=== PATIENT | male | born 1955 | race Caucasian/White ===

== ENCOUNTER → 2019-10-13 11:26 | Outpatient (BNVA) | payer BC, SELFPAY | PROVIDERS: Family Provider Nurse Practitioner; PCP Nurse Practitioner; Visit Provider Nurse Practitioner Family | DX: I10 Essential (primary) hypertension (principal); Z12.5 Encounter for screening for malignant neoplasm of prostate; D64.9 Anemia, unspecified; Z12.11 Encounter for screening for malignant neoplasm of colon | CPT/HCPCS: 80053; 80061; 82607; 82728; 82746; 83550; 84443; 85025; G0103 ==

== ENCOUNTER → 2019-10-25 13:15 | Outpatient (BNVA) | payer MEDICARE, OTHER, SELFPAY | PROVIDERS: Family Provider Nurse Practitioner; PCP Nurse Practitioner; Visit Provider Nurse Practitioner Family | DX: D64.9 Anemia, unspecified (principal); E87.1 Hypo-osmolality and hyponatremia | CPT/HCPCS: 80048; 85025 ==

== ENCOUNTER 2019-11-10 08:22 | Day surgery (SDC) | payer MEDICARE, OTHER, SELFPAY ==
[2019-11-09 10:28] VITALS: BMI 29.9
[2019-11-10 08:40] VITALS: BP 173/72; PULSE 62; RESP 18; TEMP 36.2; O2SAT 100
--- NOTE | 2019-11-10 08:48 | ANES.PREANE2 ---
Pre-Anesthetic Assessment Pre-Anesthetic Assessment: Height/Weight: Height 1.91 m Weight 108.862 kg Preop Diagnosis: Unintentional weight loss Proposed Procedure: Operation Date: 11/10/19 09:30 Proposed Procedures p EGD(Not Applicable) - Grayson Stewart MD s Colonoscopy 67021 Z12.11 38552/R63.4(Not Applicable) - Grayson Stewart MD Social: Social History: Tobacco (quit 2003) and No alcohol Exam: Pre-Anes Outpt Exam: alert, oriented x 3, clear to auscultation bilaterally and regular rate & rhythm Airway: Submandibular: WNL Cervical ROM: WNL MP: 2 Dentition: Other (poor dentation) History/ROS: No significant history except as noted Pulmonary: Pulmonary: None reported CV/HEM: CV/HEM: HTN : : None reported Hepatic: Hepatic: None reported GI: GI: None reported Metabolic: Metabolic: Hyperlipidemia Musc/skel: Musc/skel: None reported Neuropsych: Neuropsych: None reported Anesthetic Plan: ASA status: 3 Anesthesia: Anesthesia Evaluation and MAC Risk of > 500 ml blood loss (7ml/kg in children): No PFSH Anesthesia PFSH: Medical History Abnormal loss of weight Hyperlipidemia Hypertension Family History Sister Cancer Hypertension Social History Smoking and tobacco status: former smoker Alcohol intake: current Alcohol intake frequency: 0-2 Drinks per Day Alcohol type: beer Data Anesthesia Cardiac Studies: No Data to Display
[2019-11-10] MEDS: sodium chloride 0.9% 1,000 ML 30 ML IV (09:18)
--- NOTE | 2019-11-10 09:42 | W.PM.OPSUD ---
Surgery/Procedure H&P Update DATE OF PROCEDURE: November 10, 2019 DATE H&P PERFORMED: 10/27/19 H&P UPDATE INFORMATION: I have reviewed H&P completed within last 30 days, I have examined patient prior to procedure and Changes to prior documentation as noted here (As I evaluated more the patient's condition and because of the weight loss I elected to add a diagnostic EGD to rule out potential underlying cause for his weight loss and patient agreed to proceed accordingly) PREOP DIAGNOSIS: Unintentional weight loss PLANNED PROCEDURE: Operation Date: 11/10/19 09:30 Proposed Procedures p EGD(Not Applicable) - Grayson Stewart MD s Colonoscopy 63081 Z12.11 15796/R63.4(Not Applicable) - Grayson Stewart MD
--- NOTE | 2019-11-10 10:12 | SUR.OPER ---
5ml ink placed at rectal sigmoid colonic mass bx site
[2019-11-10 10:15] VITALS: BP 96/61; PULSE 61; RESP 16; TEMP 36.8; O2SAT 96
--- NOTE | 2019-11-10 10:19 | ANE.PACU2 ---
Inpatient post-anesthesia follow up: Airway intact: Yes Vital signs: Temperature 97.2 F Pulse Rate 62 Respiratory Rate 18 Blood Pressure 173/72 Pulse Oximetry 100 Oxygen Delivery Me thod Room Air Oxygen Flow Rate Fraction of Inspir ed Oxygen Hydration adequate: Yes Nausea and vomiting: No Pain level: 1 Mental status: Baseline
[2019-11-10 10:35] VITALS: BP 143/70; PULSE 57; RESP 18; O2SAT 100
[2019-11-10 12:16] LABS: Carcinoembryonic Antigen 2.4 ng/mL (0.0-4.7)
[2019-11-11 09:01] LABS: H. Pylori / CLO Test Positive
== END 2019-11-10 11:00 | disposition home or self-care (01) ==
PROVIDERS: PCP Nurse Practitioner Family; Visit Provider Surgery
PROC: 0DJ08ZZ Inspection of Upper Intestinal Tract, Via Natural or Artificial Opening Endoscopic (ICD-10-PCS; CPT 43235; principal; 2019-11-10 09:30)
PROC: 0DJD8ZZ Inspection of Lower Intestinal Tract, Via Natural or Artificial Opening Endoscopic (ICD-10-PCS; CPT 45378; 2019-11-10 09:30)
DX: Z12.11 Encounter for screening for malignant neoplasm of colon (principal); C18.7 Malignant neoplasm of sigmoid colon; R63.4 Abnormal weight loss; Z68.30 Body mass index [BMI] 30.0-30.9, adult; K92.1 Melena; K44.9 Diaphragmatic hernia without obstruction or gangrene; K29.70 Gastritis, unspecified, without bleeding; K26.9 Duodenal ulcer, unspecified as acute or chronic, without hemorrhage or perforation; Z87.891 Personal history of nicotine dependence; I10 Essential (primary) hypertension; E78.5 Hyperlipidemia, unspecified; Z79.82 Long term (current) use of aspirin
CPT/HCPCS: 12345; 43239; 45380; 82378; 87077; 88305; J7030

== ENCOUNTER 2019-11-15 12:58 | Outpatient (CLI) | payer MEDICARE, OTHER, SELFPAY ==
[2019-11-15] MEDS: iohexol 300 mg/mL 50 mL Btl PO (14:24)
[2019-11-15] MEDS: iodixanol 320 mg/mL 100mL Btl IV (14:24)
--- NOTE | 2019-11-15 14:30 | CT_ITS ---
WS: [id number] CT ABDOMEN PELVIS TECHNIQUE: Contrast-enhanced CT of the abdomen and pelvis with coronal and sagittal reformatted image s. CLINICAL INFORMATION: colonic mass COMPARISON: None. DLP: 1118.[address] scans at [facility] use at least one of these dose optimization techniques: automat ed exposure control; mA and/or kV adjustment per patient size (includes targeted exams where dose is matched to clinical indication); or iterative reconstruction. FINDINGS: Diffuse heterogeneous liver enhancement with mild diffuse fatty infiltration. A few incidental hepati c cysts near the maricruz hepatis. Diffuse coarse heterogeneous enhancement is nonspecific and metastati c disease not entirely excluded. This can be further evaluated with MRI or ultrasound. Splenic granulomas. Normal GE junction. Lung bases are well aerated. Pancreas is normal in appearance . Gallbladder is contracted with a small gallstone. Adrenal glands are normal. Normal renal parenchym al enhancement. Small left renal cysts. No hydronephrosis. Aortic calcification. Heterogeneous enhancing sigmoid colon mass consistent with known colonic mass 5.4 x 3.8 cm. Prostate calcification. Incidental fat-containing umbilical hernia. Diverticulosis. CT/CT abdomen pelvis w con* [id number] IMPRESSION: 1. Coarse heterogeneous enhancement diffusely throughout the liver nonspecific may be due to parenchymal disease however metastatic disease not entirely excl uded. This can be further evaluated with MRI or ultrasound. Recommend correlati on with liver function tests. 2. A few incidental hepatic cysts near the maricruz hepatis. Minimal proximal int rahepatic ductal dilatation 3. Gallbladder is contracted with a small gallstone. 4. Heterogeneously enhancing 5.4 x 3.8 cm sigmoid colon mass consistent with k nown carcinoma. No abdominal or inguinal lymphadenopathy. 5. Incidental left renal cysts.
== END 2019-11-15 12:59 | disposition home or self-care (01) ==
LOC: RADWPI 13:04
PROVIDERS: Family Provider Nurse Practitioner Family; PCP Nurse Practitioner Family; Visit Provider Surgery
DX: K63.89 Other specified diseases of intestine (principal); Q61.02 Congenital multiple renal cysts; K80.80 Other cholelithiasis without obstruction
CPT/HCPCS: 74177; Q9967

== ENCOUNTER 2019-11-18 13:13 | Outpatient (CLI) | payer MEDICARE, OTHER, SELFPAY ==
--- NOTE | 2019-11-18 14:51 | ONC CON_ITS ---
Dr. Winkler New Patient Note Patient: Bienvenido Preston Unit #: [id number]: 1955 Dicatated By: Mckinley Winkler M.D.Date of Visit: Nov 18, 2019 Onc MED New Patient/Consult Referring Physician: Dr. HELLEN JEFFERSON M.D. History of Present Illness: Mr. Bienvenido Preston, is a 63-year-old gentleman with a history of off and on rectal bleed and constipation as per patient he lost about 50 pounds over the period of 1 year and it was unintentional, had a good appetite. Denies any abdominal pain denies any jaundice. Denies any dysphagia, denies any abdominal fullness. And he was also found to have anemia which is responding well to oral iron and his hemoglobin checked on November 15, 2019 was 11.6 hematocrit 35.7 MCV 81, white blood count 5.9 hemoglobin 247,000. Patient was referred to GI for evaluation underwent colonoscopy for iron deficiency anemia on November 10, 2019 which showed in the proximal sigmoid colon, partially obstructing large sized fungating, friable malignant appearing 5 cm x 10 cm mass there was stigmata of bleeding from the mass. Biopsy was obtained which confirmed moderately differentiated invasive adenocarcinoma patient underwent CT scan of abdomen pelvis on November 15, 2019 which showed coarse heterogeneous enhancement diffusely throughout the liver nonspecific may be due to parenchymal disease however metastatic disease not entirely excluded heterogeneously enhancing 5.4 x 3.8 cm sigmoid colon mass. No abdominal or inguinal lymphadenopathy seen. Past Medical History: Mr. Preston's medical history consists of anemia, hyperlipidemia, and hypertension. Past Surgical History: Mr. Preston's surgical/procedural history consists of colonoscopy. Medications: Amoxicillin 2 Capsule (of 500 mg) Oral b.i.d., Aspirin Adult 1 Tablet (of 325 mg) Oral daily, Clarithromycin 1 Tablet (of 500 mg) Oral daily, Ferrous Sulfate 1 Tablet (of 325 (65 fe) mg) Oral t.i.d., Lisinopril 1 Tablet (of 10 mg) Oral daily, Metoprolol Tartrate 1 Tablet (of 50 mg) Oral b.i.d., Pantoprazole Sodium 1 Tablet (of 40 mg) Tablet, enteric coated Oral daily, Potassium Chloride Monica ER 1 Tablet (of 10 meq) Tablet, controlled release Oral daily, Spironolactone 1 Tablet (of 25 mg) Oral daily, Sucralfate 1 Tablet (of 1 g) Oral t.i.d. Allergies: hydroCHLOROthiazide Social History: Mr. Preston is single and he is an unknown. Mr. Preston quit smoking 30 years ago but had smoked 1.0 pack/day for 30 years. He is an active drinker.He consumes 2 drinks/day 4 days/week. Family History: Mr. Preston's mother is : myocardial infarction. Mr. Preston's father is : old age. Mr. Preston has 1 brother who is : prostate cancer. He has 1 sister who is : breast cancer. pt states he has 3 sisters and 1 brother, unsure of 2 sister that have past away. Review Of Symptoms: Constitutional - Appetite is good and weight has decreased. No fever, night sweats, or hot flashes. nergy level is fair, ENMT - No sinus congestion/drainage. No mouth sores. No sore throat or difficulty swallowing, Hematologic/Lymphatic - Positive for easy bruising, Respiratory - No shortness of breath. No cough. No pleuritic pain or hemoptysis, Cardiovascular - No angina pain. No palpitations, Gastrointestinal - No nausea or vomiting. No heartburn or acid reflux. No diarrhea. Positive for constipation. Positive for bloody stool (Pt has hemorrhoids), Genitourinary (M) - No dysuria or hematuria. No urinary frequency. No urgency or incontinence, Musculoskeletal - No joint or bone pain, Neurologic - No headache or dizziness. No numbness or tingling. No other focal neurologic symptoms, Psychiatric - No anxiety or depression. No insomnia. Vital Signs: Performed on Nov 18, 2019 14:12: 0, 27.25, 2.28 sq.m, 75.00 in, 100 %, 54 /min (LOW), 20 /min, 151/70 mm(hg) (HIGH), 97.7 F (LOW), and 218.0 lbs (HIGH). Performance Status: 0 - Fully active, able to carry on all predisease activities without restrictions. (ECOG) Physical Examination: ENMT - No mouth sores, no thrush no jaundice, Respiratory - Lungs are clear, Cardiovascular - Regular rate and rhythm of heart, Abdomen - Soft, bowel sounds present, no tenderness, Extremities - No visible edema or rash. Lab/Imaging: Most recent lab results are not available for this patient. Impression: Sigmoid colon adenocarcinoma per colonoscopy done on November 10, 2019 CT scan of abdomen pelvis done on November 15, 2019 shows diffuse heterogeneous liver enhancement, nonspecific but metastatic disease cannot be excluded. Iron deficiency anemia on oral iron Plan: Discussed with patient regarding his disease status and CT scan of abdomen findings which showed diffuse coarse heterogeneous enhancement although nonspecific but as per radiology metastatic disease cannot be excluded. also concerned about unintentional weight loss, at this point, will concern a CT PET scan for staging purposes and also obtain preop CEA level. Patient will return to clinic after CT PET scan for further discussion and planning. Signed By: Mckinley Winkler M.D. <<Signature on File>>
[2019-11-18 15:24] LABS: Carcinoembryonic Antigen 2.4 ng/mL (0.0-4.7)
== END 2019-11-18 13:14 | disposition home or self-care (01) ==
LOC: ONCMED 13:21
PROVIDERS: PCP Nurse Practitioner Family; Referring Provider Surgery; Visit Provider Internal Medicine Hematology & Oncology
DX: C18.7 Malignant neoplasm of sigmoid colon (principal); D50.9 Iron deficiency anemia, unspecified; R93.2 Abnormal findings on diagnostic imaging of liver and biliary tract
CPT/HCPCS: 80048; 82378; 85025; 99203

== ENCOUNTER 2019-12-07 07:13 | Inpatient (IN) | payer MEDICARE, OTHER, SELFPAY ==
[2019-12-06 09:28] VITALS: BMI 27.2
--- NOTE | 2019-12-06 09:49 | ECG_ITS ---
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 Measurements Intervals Evans Rate: 54 P: 82 DE: 228 QRS: 41 QRSD: 97 T: 53 QT: 417 QTc: 398 Interpretive Statements SINUS BRADYCARDIA WITH FIRST DEGREE AV BLOCK No previous ECG available for comparison Electronically Signed On 12-06-2019 16:43:16 CDT by Walter Gonzales M.D. [id number]
[2019-12-07] VITALS (16 sets, daily range): BP systolic 106–178; BP diastolic 53–71; PULSE 62–77; RESP 12–18; TEMP 35.9–36.8; O2SAT 92–100
--- NOTE | 2019-12-07 07:34 | ANES.PREANE2 ---
Pre-Anesthetic Assessment Pre-Anesthetic Assessment: Height/Weight: Height 1.91 m Weight 98.883 kg Preop Diagnosis: Unintentional weight loss Proposed Procedure: Operation Date: 12/07/19 08:45 Proposed Procedures p Laparoscopic Sigmoidectomy/possible open 08038 91243 C18.9(Not Applicable) - Grayson Stewart MD s Colostomy/ Flex Sigmoidoscopy Possible(Not Applicable) - Grayson Stewart MD Was Beta Nicolás taken within 24 hours: Yes Social: Social History: Alcohol and No tobacco Exam: Pre-Anes Outpt Exam: alert, oriented x 3, clear to auscultation bilaterally and regular rate & rhythm Airway: Submandibular: WNL Cervical ROM: WNL MP: 1 Dentition: Full History/ROS: No significant complaints Pulmonary: Pulmonary: None reported CV/HEM: CV/HEM: HTN : : None reported Hepatic: Hepatic: None reported GI: GI: None reported Metabolic: Metabolic: None reported Musc/skel: Musc/skel: None reported Neuropsych: Neuropsych: None reported Anesthetic Plan: ASA status: 3 Anesthesia: General Risk of > 500 ml blood loss (7ml/kg in children): Yes, adequate IV access and fluids planned PFSH Anesthesia PFSH: Medical History Abnormal loss of weight Hyperlipidemia Hypertension Family History Sister Cancer Hypertension Social History Smoking and tobacco status: former smoker Alcohol intake: current Alcohol intake frequency: 0-2 Drinks per Day Alcohol type: beer Data Anesthesia Cardiac Studies: No Data to Display
[2019-12-07] MEDS: sodium chloride 0.9% 1,000 ML 30 ML IV (07:47)
--- NOTE | 2019-12-07 08:27 | W.PM.OPSUD ---
Surgery/Procedure H&P Update DATE OF PROCEDURE: December 07, 2019 DATE H&P PERFORMED: 11/17/19 H&P UPDATE INFORMATION: I have reviewed H&P completed within last 30 days, I have examined patient prior to procedure and No changes to prior documentation PREOP DIAGNOSIS: Unintentional weight loss PRIMARY INDICATION FOR PROCEDURE: The same PLANNED PROCEDURE: Operation Date: 12/07/19 08:45 Proposed Procedures p Laparoscopic Sigmoidectomy/possible open 74607 55778 C18.9(Not Applicable) - Grayson Stewart MD s Colostomy/ Flex Sigmoidoscopy Possible(Not Applicable) - Grayson Stewart MD
[2019-12-07] MEDS: heparin 5,000 unit/mL INJ 1 mL 3000 UNIT SUBCUT (08:50)
[2019-12-07] MEDS: piperacillin-tazobactam 3.375 GM in sodium chloride 0.9% (plus) 50 ML IV ×2 (09:13→16:42)
[2019-12-07] MEDS: sodium chloride 0.9% 50 ML XX (12:59)
--- NOTE | 2019-12-07 13:40 | P.OP_ITS ---
Operative Report Date of procedure: December 07, 2019 Pre-op Diagnosis: Sigmoid colon cancer Post-op diagnosis: same Procedure Done: Laparoscopic sigmoid colectomy Laparoscopic liver biopsies right lobe of the liver using Gerard-cut needle 18 Gaug e. Implants: Large piece of Surgicel towards the left paracolic gutter Specimens removed/disposition: 1. Sigmoid colon resection sutures marked proximal 2. Staple line 3. Proximal and distal donuts 4. Multiple liver biopsies right lobe of the liver using Gerard-Cut needle 18-gauge Surgeon: Grayson Stewart Customs Compliance Manager: Surgical techTahir Woodson and [place] Circulating nurses Nubia and Leisa Anesthesia: General (supervisor roving Eugenia and Adkins) Estimated blood loss (mL): 50 IV fluids (mL): 1,600 Urine output (mL): 300 Condition: stable Disposition: floor Brief History: This is a pleasant 64 years old gentleman undergone colonoscopy and was found to have sigmoid colon cancer After thorough history physical examination and obtaining CT scan with my personal interpretation and oncology consultation, patient was counseled for laparoscopic sigmoid colectomy possible open,possible colostomy and flex sigmoidoscopy. Indications, risks, benefits and alternatives all discussed with the patient and did agree to proceed accordingly. Informed consent per chart Procedure: The patient was brought to the operating room and was placed in a supine position on the operating room table.General endotracheal anesthesia was induced.Time-out was done verifying the patient's name/date of /planned procedure and destination after the procedure, all were in agreement. SCDs confirmed to be functioning, preoperative antibiotics administered per protocol, and beta diego protocol was confirmed in addition to pharmacologic DVT prophylaxis. The patient was then moved to a modified lithotomy position.Patient was appropriately secured to the bed,Anesthesia was asked to swing the table [id number] and patient continued to be in appropriate secured position. Betadine flushes was done to the anorectal area followed by prep of the perineum Betadine The abdomen was prepped and draped in a sterile fashion. Started by longitudinal skin incision supra umbilical using a Millan trocar technique safe entry to the abdominal cavity was achieved, gas insufflation was obtained and under direct visualization I inserted 12 mm trocar at the right lower quadrant followed by 5 mm trocar left upper quadrant ,there was no injury to the underlying viscera. Multiple liver lesions were noticed concerning for metastatic disease and a trocar 18-gauge multiple biopsies were obtained from the right lobe of the liver and sent for permanent,there was no evidence of peritoneal carcinomatosis or malignant ascites otherwise. I started by mobilizing the sigmoid colon through the line of Toldt using the harmonic scalpel device and the left ureter was identified, tattooing of the sigmoid colon was noticed from the previous flex sigmoidoscopy and a large mass was appreciated, dissection was done safely without injuring the left ureter. I was able to identify and skeletonized the ARTHUR pedicle and 45 mm vascular GI load was applied to secure the ARTHUR pedicle as a high ligation to maximize the lymph node basins of the specimen. At that point I continued dissection and mobilizing the left side of the colon up to the proximal descending colon in the interim I did add an additional left lower quadrant 5 mm trocar to help countertraction of the colon,followed by that via the 12 mm trocar introduced and endoscopic stapler device [place] using green load 45 mm and was angled in a way to divide the junction between the distal sigmoid and the healthy upper rectum, division was achieved after 2 loads of the green load as the sigmoid colon was thick at this point. At that point I created transverse incision at the left 5 mm trocar site were and the wound protection device was placed, I was able to deliver the distal sigmoid colon Inclusive for the diseased sigmoid colon segment including the large colon mass and the, and [place] 45 mm blue load was applied to the proximal part of the sigmoid colon after the rest of the mesentery was divided by harmonic scalpel and the specimen was marked by sutures to identify proximal and specimen was passed to the circulating nurse for permanent pathology. Attention was deviated at the proximal colon were the staple line was taken off with Gustavo scissors and sent also for pathology.The colon was sized and a size 29 EEA stapler was decided upon.The anvil was sewn into the proximal sigmoid with a running suture of 3-0 Prolene and 3-0 Vicryl ,that part of the colon was dropped back into the abdominal cavity,.And a good seal was obtained by the wound protection device.Gloves were changed,at this point additional mobilization was obtained due to the adherence of the omentum to the proximal part of the colon to allow tension-free anastomosis.at that point my partner Dr Olivares scrubbed in and The EEA was introduced through the rectum by him and the EEA was opened through the distal staple line. The anvil was connected and was slowly screwed down until the 2 limbs of bowel were contacting each other with good orientation of the mesentery of the colon.The Surrounding structures were again confirmed to be out of the area and the EEA was fired.The EEA was removed and 2 solid colonic rings of tissue were found in the EEA. Both doughnuts as well as the proximal sigmoid staple line were sent to pathology. The pelvis was again irrigated and while some irrigation was still in the pelvis a flexible sigmoidoscope was used to inflate the distal colon via the rectum by my partner, having placed a long blade [place] bowel was clamped proximal to the staple line on the sigmoid.The colon filled very well and no air leaks were seen under a level of saline in the pelvis.Further irrigation and suction of abdomen and pelvis.No ongoing bleeding or other problems were seen anywhere in the abdomen. Bilateral TAP (transversus abdominous plain peripheral nerve block )block using Exparel 20 mL Exparel 40 ml Normal saline 20 ml bupivacaine 0.25% 30 mL on each side injected 20 mL injected the port sites A final look laparoscopy showed no injuries or bleeding except for some oozing towards the left paracolic gutter.I elected to put a large piece of Surgicel towards the left paracolic gutter as there was some retroperitoneal oozing from dissection. During closure of the supraumbilical Millan trocar with #1 PDS suture noticed there was some bleeding from the falciform ligament I elected to fire a vascular load 45 mm for appropriate hemostasis. The right lower quadrant 12 mm trocar site was closed by #1 PDS under direct visualization as well. All trocars were taken out under direct visualization and closure of the left lateral incision was done in 2 layers using PDS and Vicryl sutures, all trocar sites were closed by skin laly, dressing was applied, all wounds were thoroughly irrigated prior to closure. Counts of sponges,needles and instruments were completed at the end of the procedure. Patient tolerated the procedure well and got extubated and was taken directly to the intensive care unit. I was present for the whole entire procedure. Due to medical necessity. Customs Compliance Manager surgeon is required to assist in this procedure in the form of; Introduced the EEA via the anus, and assist in performing colorectal anastomos is, followed by introduction of the flex sigmoidoscopy to rule out potential leak or bleeding.
[2019-12-07] MEDS: lactated ringers 1,000 ML 125 ML IV ×2 (14:44→22:17)
[2019-12-07] MEDS: famotidine 20 mg/2 mL INJ IVP (14:45)
[2019-12-08] VITALS (11 sets, daily range): BP systolic 134–162; BP diastolic 63–70; PULSE 62–81; RESP 16–22; TEMP 36.4–37.2; O2SAT 97–100
[2019-12-08] MEDS: piperacillin-tazobactam 3.375 GM in sodium chloride 0.9% (plus) 50 ML IV ×2 (01:03→08:52)
[2019-12-08] MEDS: famotidine 20 mg/2 mL INJ IVP ×2 (03:00→13:53)
[2019-12-08 04:42] LABS: Hematocrit 32.4 % (42.0-52.0); Hemoglobin 10.1 g/dL (11.7-16.6)
[2019-12-08 05:16] LABS: Anion Gap 11.4 (5-19); Blood Urea Nitrogen 11 mg/dL (8-23); Calcium 7.8 mg/dL (8.5-10.5); Carbon Dioxide 25 mmol/L (22-29); Chloride 101 mmol/L (98-107); Glomerular Filtration Rate 55.4 mL/min (90-130); Glucose 145 mg/dL (65-115); Osmolality Calculated 275 mOsm/kg (285-295); Potassium 4.4 mmol/L (3.5-5.1); Sodium 133 mmol/L (136-145)
[2019-12-08] MEDS: heparin 5,000 unit/mL INJ 1 mL 5000 UNIT SUBCUT ×3 (05:21→21:33)
[2019-12-08] MEDS: metoprolol tartrate 1 mg/1 mL SDV 5 mL 5 MG IV ×2 (05:30→09:54)
--- NOTE | 2019-12-08 05:34 | PM.PN ---
Subjective Subjective: Interval history: Patient overall doing well ,no acute events overnight UOP 900 ml non bloody Pain under control Vitals/I&O/Wt Last Vital Signs Temp 98.6 F 12/08/19 04:00 Pulse 74 12/08/19 04:00 Resp 16 12/08/19 04:00 BP 143/69 12/08/19 04:00 Pulse Ox 100 12/08/19 04:00 12/07/19 12/07/19 12/08/19 14:59 22:59 06:59 Intake Total 1950 / 1950 1093.75 / 3043.75 80 / 3123.75 Output Total 650 / 650 900 / 1550 Balance 1300 / 1300 1093.75 / 2393.75 -820 / 1573.75 Weight last 48 hrs Weight 218 lb Physical Exam Narrative: EXAM NARRATIVE: Patient is conscious alert oriented X3 BMI 27 Head and neck examination PERRLA no masses no cervical lymphadenopathy no jaundice Cardiac examination audible S1-S2 no murmurs no gallops no arrhythmias Chest is clear bilateral,abscence of Rhonchi or wheezes,no surgical emphysema Abdomen nontender nondistended soft no organomegaly guarding or rigidity/no signs of peritonitis/dressing is intact Extremities no cyanosis no clubbing no edema Urinary Catheter Management^: Serna: Cath Placed During This Visit: yes Reason for Continuing Indwelling Catheter: Other Urinary Catheter Date of Insertion: 12/07/19 Urinary Catheter Time of Insertion: 09:45 Data : 12/08/19 04:02 12/08/19 04:02 A&P Assessment and plan (1) Cancer of sigmoid colon: Patient is a status post laparoscopic sigmoid colectomy done on 12/07/2019 Still did not pass gas yet Encourage ambulation 3-4 times a day at least 300 feet each time Incentive spirometer every hour Continue pharmacologic DVT prophylaxis DC Serna catheter Strict I's and O's DC IV antibiotic Once patient starts passing gas will start him slowly on clear liquid diet and protein shakes Assurance and education All questions have been answered and all concerns have been addressed to patient's satisfaction. Status: Resolved Attestations Medical Necessity Statement*: Medical necessity care is expected to cross 2 midnights Time Spent in Patient Care: (>than 50% of time spent in counselling and/or direct pt care on unit). Coding Level of Care Code Acute Sales Representative Facility Services for Chg Fwd Diagnoses Cancer of sigmoid colon C18.7
--- NOTE | 2019-12-08 05:41 | PC.NURSE ---
SHIFT SUMMARY Has had a good night. Denies pain with questioning. IV infusing at 125ml/hr rate. 900ml urine output from Serna this shift. Remains NPO except occ ice chip. Has not passed any flatus yet. Says feels some pressure like he might. Ambulated in rodney with nurse this am and tolerated well. X4 small telfa dressings to abd incisions all dry & intact. SCD's to BLE and Heparin SQ started this am. Enc use of IS at bedside. Serna to be removed this am per Dr Daniels order
[2019-12-08] MEDS: lactated ringers 1,000 ML 125 ML IV ×3 (05:58→21:37)
--- NOTE | 2019-12-08 10:07 | PC.CHAP ---
Pastoral Care Encounter/Spiritual Assessment Type of Contact [] Declined security field supervisor visit [] Patient/Family/Request visit [] Outpatient visit [] Follow-up visit [] Physician referral [] Code/Alert [x] Routine visit [] Staff referral [] Actively dying [] Patient sleeping [] Family support [] [] Out of room [] Palliative care [] [] Receiving care in room [] Pre-surgical visit [] Trauma [] Long length of stay [] ICU visit [] Other: Relational/Emotional Strength [] Patient feels connected with others/family/visitors/staff [] Distress [] Loneliness/isolation [] Abandonment Spirituality of Patient [] Person of Ranjana [] Attends Mormonism of their Ranjana [] Believes in Prayer [] Reads Bible or Church materials [] There are Spiritual issues to be addressed 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 Interventions [x] Prayer [x] Active listening [x] Non-anxious presence [x] Spiritual/emotional support [] Crisis/trauma care [] Spiritual counseling [] Bereavement support [] Provided bereavement packet [] Provided Bible/devotional materials [] Provided toy/stuffed animal, coloring book to patient or family member [] Provided Communion [] Anointing/[place] [] Salvation [x] Completed spiritual assessment [] Other: Impact on Illness or Injury [] Angry [] Fearful [] Anxious [] Often cries [] Exhaustion [] Unable to work [] Unable to attend adventism [] Unable to walk/stand [] Unable to read [] Unable to drive [] Unable to eat/drink [] Unable to sleep [] Unable to be with family [] Patient intubated [] Other: Summary Patient feeling some what stronger. Time spent with patient 10 min
--- NOTE | 2019-12-08 10:38 | PC.NURSE ---
Bienvenido Preston Henry Male : 1955 Emr# [id number] 12/08/2019 10:38 - Nurse noted by JACOB Estrada Acct Num: [id number] : 1955 Patient Age: 64 WEIGHT On admission patient was weighed at 218lb, during head to toe assessment I documented patients weight with the bed scale of 228. Patient had one pillow, bed and turn sheet with two blankets on the bed with the patient. Initialized on 12/08/2019 10:38 - END OF NOTE
--- NOTE | 2019-12-08 10:54 | PC.NURSE ---
WEIGHT Upon admission patient was weighed at 218lb, during head to toe assessment patient was weighed by bed scale at 228. The patient had one pillow, bed and turn sheet and two blankets on top of him.
--- NOTE | 2019-12-08 13:50 | PC.NURSE ---
bloody stool pt had bm that was thin bright blood.
[2019-12-09] MEDS: famotidine 20 mg/2 mL INJ IVP ×2 (03:01→15:26)
[2019-12-09 03:31] LABS: Hematocrit 30.1 % (42.0-52.0); Hemoglobin 9.4 g/dL (11.7-16.6)
[2019-12-09 03:36] LABS: Blood Urea Nitrogen 9 mg/dL (8-23); Calcium 7.9 mg/dL (8.5-10.5); Carbon Dioxide 25 mmol/L (22-29); Chloride 102 mmol/L (98-107); Glomerular Filtration Rate 67.2 mL/min (90-130); Glucose 97 mg/dL (65-115); Osmolality Calculated 276 mOsm/kg (285-295); Sodium 135 mmol/L (136-145)
[2019-12-09 03:58] VITALS: BP 149/66; PULSE 62; RESP 20; TEMP 36.7; O2SAT 97
[2019-12-09] MEDS: heparin 5,000 unit/mL INJ 1 mL 5000 UNIT SUBCUT (06:05)
[2019-12-09] MEDS: lactated ringers 1,000 ML 125 ML IV (06:06)
--- NOTE | 2019-12-09 06:32 | PM.PN ---
Subjective Subjective: Interval history: Patient overall feels well but did not pass gas yet He had a hard time sleeping yesterday is requesting a pill to sleep Issues with voiding urine patient undergone in and out cath yesterday afternoon and later on retained urine and a Serna catheter has to be reinserted Vitals/I&O/Wt Last Vital Signs Temp 98.0 F 12/09/19 03:58 Pulse 62 12/09/19 03:58 Resp 20 H 12/09/19 03:58 BP 149/66 12/09/19 03:58 Pulse Ox 97 12/09/19 03:58 12/08/19 12/08/19 12/09/19 14:59 22:59 06:59 Intake Total 991.667 / 991.667 964.583 / 9251.347 8215 / 2956.250 Output Total 650 / 650 500 / 1150 1350 / 2500 Balance 341.667 / 341.667 464.583 / 806.250 -350 / 456.250 Physical Exam Narrative: EXAM NARRATIVE: Patient is conscious alert oriented X3 BMI 27 Head and neck examination PERRLA no masses no cervical lymphadenopathy no jaundice Cardiac examination audible S1-S2 no murmurs no gallops no arrhythmias Chest is clear bilateral,abscence of Rhonchi or wheezes,no surgical emphysema Abdomen nontender nondistended soft no organomegaly guarding or rigidity/no signs of peritonitis Dressing removed incisions are clean dry and intact and skin laly in place Serna catheter in place with clear urine Extremities no cyanosis no clubbing no edema Urinary Catheter Management^: Serna: Cath Placed During This Visit: yes, but has since been removed by the nurse Reason for Continuing Indwelling Catheter: Acute Urinary Retention or Obstruction Urinary Catheter Date of Insertion: 12/08/19 Urinary Catheter Time of Insertion: 18:40 Date Urinary Catheter Removed: 12/08/19 Time Urinary Catheter Discontinued: 06:04 Data : 12/09/19 02:48 12/09/19 02:48 A&P Assessment and plan (1) Cancer of sigmoid colon: Patient is a status post laparoscopic sigmoid colectomy done on 12/07/2019 Still did not pass gas yet Will switch fluids to maintenance and will DC LR Encourage ambulation 3-4 times a day at least 300 feet each time Incentive spirometer every hour SCDs and will hold on heparin as the patient H&H drifting down slowly Serna catheter management Strict I's and O's Awaiting bowel functions,once patient starts passing gas will start him slowly on clear liquid diet and protein shakesand Resuming home meds. Assurance and education All questions have been answered and all concerns have been addressed to patient's satisfaction. Status: Resolved Attestations Medical Necessity Statement*: Medical necessity care is expected to cross 2 midnights Time Spent in Patient Care: (>than 50% of time spent in counselling and/or direct pt care on unit). Coding Level of Care Code Acute [employer] Certified Network Professional for Chg Fwd Diagnoses Cancer of sigmoid colon C18.7
[2019-12-09] MEDS: D5-NS 0.45% + KCL 20 mEq 20 MEQ/1,000 ML BAG 100 MEQ IV ×2 (07:05→15:26)
[2019-12-09 07:41] VITALS: BP 141/60; PULSE 67; RESP 22; TEMP 36.1; O2SAT 98
--- NOTE | 2019-12-09 08:39 | PC.NURSE ---
AMBULATING IN [place] WALKED 600 FT WITH SBA
[2019-12-09 11:20] VITALS: BP 154/65; PULSE 63; RESP 20; TEMP 36.9; O2SAT 99
--- NOTE | 2019-12-09 12:03 | PC.NURSE ---
AMBULATED 800 FEET. SMW, EDUCATION COUNSELOR
[2019-12-09 15:28] VITALS: BP 130/68; TEMP 36.6; O2SAT 98
[2019-12-09] MEDS: metoprolol tartrate 50 mg Tablet PO (17:36)
[2019-12-09 17:41] VITALS: PULSE 78; RESP 16; O2SAT 95
[2019-12-09 20:00] VITALS: BP 159/72; PULSE 62; RESP 18; TEMP 36.6; O2SAT 99
[2019-12-09] MEDS: diphenhydrAMINE 25 mg Capsule PO (21:12)
[2019-12-10] VITALS: BP 144/64; PULSE 68; RESP 22; TEMP 36.7; O2SAT 96
[2019-12-10] MEDS: famotidine 20 mg/2 mL INJ IVP (02:26)
[2019-12-10 04:00] VITALS: BP 161/69; PULSE 58; RESP 20; TEMP 36.7; O2SAT 97
[2019-12-10 04:37] LABS: Anion Gap 12.6 (5-19); Blood Urea Nitrogen 7 mg/dL (8-23); Calcium 7.9 mg/dL (8.5-10.5); Carbon Dioxide 24 mmol/L (22-29); Chloride 100 mmol/L (98-107); Glomerular Filtration Rate 67.2 mL/min (90-130); Glucose 93 mg/dL (65-115); Osmolality Calculated 272 mOsm/kg (285-295); Potassium 3.6 mmol/L (3.5-5.1); Sodium 133 mmol/L (136-145)
[2019-12-10 04:41] LABS: Hematocrit 29.1 % (42.0-52.0); Hemoglobin 9.1 g/dL (11.7-16.6)
--- NOTE | 2019-12-10 07:01 | PM.DCS ---
Discharge Providers Date of Admission: 12/07/19 07:13 Date of Discharge: December 10, 2019 Attending Provider at Admission: Grayson Stewart MD Attending Provider at Discharge: Grayson Stewart MD Primary Care Provider: ZA Chappell Diagnoses at Discharge Discharge Diagnosis (1) Cancer of sigmoid colon: Status: Resolved (2) Urinary retention: Status: Resolved Problem details: After placement of Serna catheter Reason for Visit Reason for Visit: Adenocarcinoma of colon Hospital Course Discharge Summary: This is a pleasant 64 years old gentleman undergone uneventful laparoscopic sigmoid colectomy and liver biopsies for colon cancer, patient was admitted after surgery as an inpatient and had uncomplicated postoperative course, once he resumed bowel functions and started passing gas he was started on clear liquid diet and protein shakes and tolerated that well, yesterday he had multiple nonbloody bowel movement, and continued to have appropriate urine output. Day after surgery the Serna catheter was discontinued yet the patient retained about 400 mL of urine that required in and out catheter in the same day patient retained more urine so we had to reinsert the Serna catheter and kept it be taken out as an outpatient with voiding trial. Patient fulfilled all the criteria for safe discharge planning today Physical Exam Narrative: EXAM NARRATIVE: Patient is conscious alert oriented X3 BMI 27 Head and neck examination PERRLA no masses no cervical lymphadenopathy no jaundice Cardiac examination audible S1-S2 no murmurs no gallops no arrhythmias Chest is clear bilateral,abscence of Rhonchi or wheezes,no surgical emphysema Abdomen nontender nondistended soft no organomegaly guarding or rigidity/no signs of peritonitis. Incisions are clean dry and intact and skin laly in place Serna catheter in place Extremities no cyanosis no clubbing no edema Urinary Catheter Management^: Serna: Cath Placed During This Visit: yes, but has since been removed by the nurse Reason for Continuing Indwelling Catheter: Acute Urinary Retention or Obstruction Urinary Catheter Date of Insertion: 12/08/19 Urinary Catheter Time of Insertion: 18:40 Date Urinary Catheter Removed: 12/08/19 Time Urinary Catheter Discontinued: 06:04 Discharge Data Data Completed and Pending: Pending at discharge Category Date Time Status ES surgery / GI i mages Routine Exams 12/07/19 07:45 Taken Pathology: Surgic al [PTH] Routine Pth 12/07/19 13:45 Received Labs from last 24 hours 12/10/19 12/10/19 02:54 02:54 Hgb 9.1 L Hct 29.1 L Sodium 133 L Potassium 3.6 Chloride 100 Carbon Dioxide 24 Anion Gap 12.6 BUN 7 L Creatinine 1.1 GFR Calculation 67.2 L Glucose 93 Calculated Osmolal ity 272 L Calcium 7.9 L Vitals: Last Vital Signs Temp 98.1 F 12/10/19 04:00 Pulse 58 L 12/10/19 04:00 Resp 20 H 12/10/19 04:00 BP 161/69 12/10/19 04:00 Pulse Ox 97 12/10/19 04:00 Discharge Plan Discharge Patient Disposition: Home, Self-Care Condition: Stable Prescriptions: [place] 5-325 mg tablet 1 tab PO Q6H PRN (Reason: pain) Qty: 28 RF: 0 Continued lisinopril 10 mg tablet 10 mg PO DAILY Qty: 30 RF: 0 metoprolol tartrate 50 mg tablet 50 mg PO BID Qty: 60 RF: 5 potassium chloride [Klor-Con 10] 10 mEq tablet extended release 10 meq PO DAILY Qty: 30 RF: 5 ferrous sulfate 325 mg (65 mg iron) tablet 325 mg PO TID Qty: 90 RF: 0 pantoprazole [Protonix] 40 mg tablet,delayed release (DR/EC) 40 mg PO DAILY 30 Days Qty: 30 RF: 2 sucralfate [Carafate] 1 gram tablet 1 gm PO TID 56 Days Qty: 168 RF: 1 Held aspirin 325 mg tablet 325 mg PO DAILY RF: 0 Hold Instructions: Resume on 12/15/19. Discharge Orders: Discharge Order (Routine); Ordered 12/10/19 Ordered By: Grayson Stewart Referrals: Grayson Stewart MD [Physician] - (Return to surgery office in 1 week) Discharge Diet: Advance as tolerated Discharge Activity: Limit activity as instructed Activity Restrictions/Additional Instructions: 1. Patient can shower after 48 hours from surgery 2. Serna catheter teaching and education 3. Up and walking as tolerated 4. Do lift more than 5 pounds first 2 weeks after surgery and not more than 25 pounds 6 to 8 weeks after surgery. 5. Do not operate heavy machinery or drive while using pain medications. 6.Contact the office or return to the ER for worsening nausea vomiting fevers or chills, or noticing any redness around incision sites or discharge. 7. Avoid constipation Discharge Attestations Time Spent in Discharge Care*: less than 30 min Specific Discharge Activities: Specific discharge activities: educating patient Status at Discharge: Cognitive status at discharge: cognitively intact, Behavioral status at discharge: cooperative, Functional status at discharge: independent ambulation Overall status at discharge: patient is progressing back to baseline Quality Metrics Clinical Quality Measures During this hospital stay, did patient experience: None Coding Level of Care Code Acute Medical Billing And Coding Instructor for Marisa Fwelda Diagnoses Cancer of sigmoid colon C18.7 Urinary retention R33.9
[2019-12-10 08:00] VITALS: BP 161/88; PULSE 62; RESP 16; TEMP 36.8; O2SAT 99
[2019-12-10] MEDS: metoprolol tartrate 50 mg Tablet PO (08:27)
--- NOTE | 2019-12-10 08:30 | DCPLANNER ---
Pg 2 of IM updated and reviewed with pt. He is being d/c'd today and is ready to go. He appreciates the information though. Copy provided.
[2019-12-10 10:45] VITALS: BP 161/88; PULSE 62; RESP 16; TEMP 36.8; O2SAT 99
== END 2019-12-10 11:40 | disposition home or self-care (01) | DRG 331 ==
PROVIDERS: Admitting Provider Surgery; PCP Nurse Practitioner Family; Visit Provider Surgery
PROC: 0DTN4ZZ Resection of Sigmoid Colon, Percutaneous Endoscopic Approach (ICD-10-PCS; CPT 44204; principal; 2019-12-07 08:45)
DX: C18.7 Malignant neoplasm of sigmoid colon (principal); R33.9 Retention of urine, unspecified; I10 Essential (primary) hypertension; Z87.891 Personal history of nicotine dependence
CPT/HCPCS: 12345; 36415; 51702; 51798; 80048; 85014; 85018; 88307; 88309; 93005; 96365; 96372; 96375; C9290; J0131; J0330; J1100; J1644; J2250; J2370; J2405; J2543; J2704; J2710; J3010; J3490; J7030

== ENCOUNTER 2019-12-20 09:19 | Outpatient (CLI) | payer MEDICARE, OTHER, SELFPAY ==
--- NOTE | 2019-12-20 17:05 | ONC FU_ITS ---
Dr. Winkler follow up note Patient: Bienvenido Preston Unit #: [id number]: 1955 Dicatated By: Mckinley Winkler M.D.Date of Visit:Dec 20, 2019 Onc Med Follow-up/Prog Note History of Present Illness: Mr. Bienvenido Preston, is a 64-year-old gentleman with a history of off and on rectal bleed and constipation as per patient he lost about 50 pounds over the period of 1 year and it was unintentional, had a good appetite. Denies any abdominal pain denies any jaundice. Denies any dysphagia, denies any abdominal fullness. And he was also found to have anemia which is responding well to oral iron and his hemoglobin checked on November 15, 2019 was 11.6 hematocrit 35.7 MCV 81, white blood count 5.9 Platelets 247,000. Patient was referred to GI for evaluation underwent colonoscopy for iron deficiency anemia on November 10, 2019 which showed in the proximal sigmoid colon, partially obstructing large sized fungating, friable malignant appearing 5 cm x 10 cm mass there was stigmata of bleeding from the mass. Biopsy was obtained which confirmed moderately differentiated invasive adenocarcinoma patient underwent CT scan of abdomen pelvis on November 15, 2019 which showed coarse heterogeneous enhancement diffusely throughout the liver nonspecific may be due to parenchymal disease however metastatic disease not entirely excluded heterogeneously enhancing 5.4 x 3.8 cm sigmoid colon mass. No abdominal or inguinal lymphadenopathy seen. CT PET scan was done on December 04, 2019 which showed hypermetabolic primary sigmoid adenocarcinoma adjacent mesenteric nodes are too small to characterize and normal pattern of activity in the liver, hepatic metastatic disease is less likely but not excluded Subsequently patient underwent laparoscopic sigmoid colectomy with a liver biopsy on December 07, 2019 and final pathology report showed moderately differentiated adenocarcinoma involving sigmoid colon size of invasive tumor was 5 cm with a clear surgical margin, tumor invades submucosa and muscularis propria , pT2 , no lymphovascular invasion seen no perineural invasion seen 21 lymph nodes were removed showed no evidence of metastatic disease pN0 liver biopsy well. 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 Came for follow-up, denies any specific complaints, no fever chills, no nausea or vomiting, no diarrhea constipation, tolerated laparoscopic sigmoid resection and liver biopsy, well, surgical wound healing well Medications: Aspirin Adult 1 Tablet (of 325 mg) Oral daily, Ferrous Sulfate 1 Tablet (of 325 (65 fe) mg) Oral t.i.d., Lisinopril 1 Tablet (of 10 mg) Oral daily, Metoprolol Tartrate 1 Tablet (of 50 mg) Oral b.i.d., Pantoprazole Sodium 1 Tablet (of 40 mg) Tablet, enteric coated Oral daily, Potassium Chloride Monica ER 1 Tablet (of 10 meq) Tablet, controlled release Oral daily, Spironolactone 1 Tablet (of 25 mg) Oral daily, Sucralfate 1 Tablet (of 1 g) Oral t.i.d. Allergies: hydroCHLOROthiazide Review of Systems: Constitutional - Appetite is good and weight has decreased. No fever, night sweats, or hot flashes. Energy level is fair, ENMT - No sinus congestion/drainage. No mouth sores. No sore throat or difficulty swallowing, Hematologic/Lymphatic - Positive for easy bruising, Respiratory - No shortness of breath. No cough. No pleuritic pain or hemoptysis, Cardiovascular - No angina pain. No palpitations, Gastrointestinal - No nausea or vomiting. No heartburn or acid reflux. No diarrhea. Positive for constipation. Positive for bloody stool (Pt has hemorrhoids), Genitourinary (M) - No dysuria or hematuria. No urinary frequency. No urgency or incontinence, Musculoskeletal - No joint or bone pain, Neurologic - No headache or dizziness. No numbness or tingling. No other focal neurologic symptoms, Psychiatric - No anxiety or depression. No insomnia. Vital Signs: Performed on Dec 20, 2019 09:27 Height - 75.00 in Weight - 216.0 lbs (LOW) BSA - 2.27 sq.m BMI - 27.00 Temperature - 98.8 F Pulse - 69 /min Respiration - 18 /min BP - 153/63 mm(hg) (HIGH) O2 Sat - 100 % Pain - 0 Performance Status: 0 - Fully active, able to carry on all predisease activities without restrictions. (ECOG) Physical Examination: ENMT - No mouth sores no thrush no jaundice, Respiratory - Lungs are clear, Cardiovascular - Regular rate and rhythm of heart, Abdomen - Soft, bowel sounds present, well-healed laparoscopic wounds, Extremities - No visible edema. Lab/Imaging: Test performed on Nov 18, 2019 08:00 CEA 2.4 ng/mL Impression: Sigmoid colon adenocarcinoma per colonoscopy done on November 10, 2019, Status post laparoscopic sigmoid colon resection and liver biopsy done on December 07 2019 final pathology report showed moderately differentiated adenocarcinoma involving sigmoid colon invading into but confined to muscularis propria, with clear surgical margins no lymphovascular/perineural involvement pT2 0 out of 21 lymph nodes showed metastatic disease pN0 Liver biopsy shows no evidence of metastatic disease rather multiple intrinsic liver abnormalities, favor multiple bile duct adenomas Stage I CT scan of abdomen pelvis done on November 15, 2019 shows diffuse heterogeneous liver enhancement, nonspecific but metastatic disease cannot be excluded. CT PET scan done on December 04, 2019 showed hypermetabolic primary sigmoid adenocarcinoma. Adjacent mesenteric nodes are too small to characterize. A normal pattern of activity in the liver, hepatic metastatic disease is less likely but not excluded Iron deficiency anemia on oral iron Plan: Discussed with patient regarding his disease status and final pathology report and CT PET scan reports, fortunately, patient has early stage disease, tumor was invading into but confined to muscularis propria with a clear surgical margin no lymphovascular/perineural involvement e.g. pT2 and 21 lymph nodes were evaluated and showed no evidence of metastatic disease pN0 and there was a concern about liver involvement as CT scan abdomen, followed by CT PET scan could not exclude possibility of liver mets so liver biopsy was done which showed no evidence of metastatic disease rather favor multiple bile duct adenomas. Considering early stage disease e.g. stage I with favorable factors, no role of adjuvant chemotherapy, will consider MSI/MMR D to rule out genetic predisposing. As far as iron deficiency anemia is concerned, will continue with oral iron patient was advised to take oral iron once a day with orange juice to facilitate better absorption and then return to clinic in 1 month with CBC and iron studies.^If no improvement may consider parenteral iron] Signed By: Mckinley Winkler M.D. <<Signature on File>>
== END 2019-12-20 09:20 | disposition home or self-care (01) ==
LOC: ONCMED 09:24
PROVIDERS: PCP Nurse Practitioner Family; Visit Provider Internal Medicine Hematology & Oncology
DX: C18.7 Malignant neoplasm of sigmoid colon (principal); D50.9 Iron deficiency anemia, unspecified
CPT/HCPCS: 99214

== ENCOUNTER → 2020-01-17 12:16 | Outpatient (BNVA) | payer MEDICARE, OTHER, SELFPAY | PROVIDERS: PCP Nurse Practitioner Family; Visit Provider Internal Medicine Hematology & Oncology | DX: C18.9 Malignant neoplasm of colon, unspecified (principal) | CPT/HCPCS: 82728; 83550; 85025 ==

== ENCOUNTER 2020-01-20 09:47 | Outpatient (CLI) | payer MEDICARE, OTHER, SELFPAY ==
--- NOTE | 2020-01-20 11:12 | ONC FU_ITS ---
Dr. Winkler follow up note Patient: Bienvenido Preston Unit #: [id number]: 1955 Dicatated By: Mckinley Winkler M.D.Date of Visit:Jan 20, 2020 Onc Med Follow-up/Prog Note History of Present Illness: Mr. Bienvenido Preston, is a 64-year-old gentleman with a history of off and on rectal bleed and constipation as per patient he lost about 50 pounds over the period of 1 year and it was unintentional, had a good appetite. Denies any abdominal pain denies any jaundice. Denies any dysphagia, denies any abdominal fullness. And he was also found to have anemia which is responding well to oral iron and his hemoglobin checked on November 15, 2019 was 11.6 hematocrit 35.7 MCV 81, white blood count 5.9 Platelets 247,000. Patient was referred to GI for evaluation underwent colonoscopy for iron deficiency anemia on November 10, 2019 which showed in the proximal sigmoid colon, partially obstructing large sized fungating, friable malignant appearing 5 cm x 10 cm mass there was stigmata of bleeding from the mass. Biopsy was obtained which confirmed moderately differentiated invasive adenocarcinoma patient underwent CT scan of abdomen pelvis on November 15, 2019 which showed coarse heterogeneous enhancement diffusely throughout the liver nonspecific may be due to parenchymal disease however metastatic disease not entirely excluded heterogeneously enhancing 5.4 x 3.8 cm sigmoid colon mass. No abdominal or inguinal lymphadenopathy seen. CT PET scan was done on December 04, 2019 which showed hypermetabolic primary sigmoid adenocarcinoma adjacent mesenteric nodes are too small to characterize and normal pattern of activity in the liver, hepatic metastatic disease is less likely but not excluded Subsequently patient underwent laparoscopic sigmoid colectomy with a liver biopsy on December 07, 2019 and final pathology report showed moderately differentiated adenocarcinoma involving sigmoid colon size of invasive tumor was 5 cm with a clear surgical margin, tumor invades submucosa and muscularis propria , pT2 , no lymphovascular invasion seen no perineural invasion seen 21 lymph nodes were removed showed no evidence of metastatic disease pN0 liver biopsy well. 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 Came for follow-up, denies any specific complaints, no fever chills, no nausea or vomiting, no diarrhea constipation, no melena or hematochezia, no jaundice, tolerating oral iron well Medications: Aspirin Adult 1 Tablet (of 325 mg) Oral daily, Ferrous Sulfate 1 Tablet (of 325 (65 fe) mg) Oral daily, Lisinopril 1 Tablet (of 10 mg) Oral daily, Metoprolol Tartrate 1 Tablet (of 50 mg) Oral b.i.d., Potassium Chloride Monica ER 1 Tablet (of 10 meq) Tablet, controlled release Oral daily, Simvastatin 1 Tablet (of 5 mg) Oral daily Allergies: hydroCHLOROthiazide Review of Systems: Constitutional - Appetite is good and weight has decreased. No fever, night sweats, or hot flashes. Energy level is fair, ENMT - No sinus congestion/drainage. No mouth sores. No sore throat or difficulty swallowing, Hematologic/Lymphatic - Positive for easy bruising, Respiratory - No shortness of breath. No cough. No pleuritic pain or hemoptysis, Cardiovascular - No angina pain. No palpitations, Gastrointestinal - No nausea or vomiting. No heartburn or acid reflux. No diarrhea. Positive for constipation. Positive for bloody stool (Pt has hemorrhoids), Genitourinary (M) - No dysuria or hematuria. No urinary frequency. No urgency or incontinence, Musculoskeletal - No joint or bone pain, Neurologic - No headache or dizziness. No numbness or tingling. No other focal neurologic symptoms, Psychiatric - No anxiety or depression. No insomnia. Vital Signs: Performed on Jan 20, 2020 10:22 Height - 75.00 in Weight - 229.6 lbs (HIGH) BSA - 2.33 sq.m BMI - 28.70 Temperature - 97.6 F (LOW) Pulse - 63 /min Respiration - 24 /min BP - 178/87 mm(hg) (HIGH) O2 Sat - 100 % Pain - 0 Performance Status: 0 - Fully active, able to carry on all predisease activities without restrictions. (ECOG) Physical Examination: ENMT - No mouth sores, no thrush, no jaundice, Respiratory - Lungs are clear, Cardiovascular - Regular rate and rhythm of heart, Abdomen - Soft, bowel sounds present, Extremities - No visible edema. Lab/Imaging: Test performed on Jan 17, 2020 12:16 Ferritin 30 ng/mL % Iron Saturation 9.2 % Iron, Total 30 mcg/dL TIBC 326 mcg/dL WBC 6.8 10^9/L RBC 4.28 10^12/L HGB 12.2 g/dL HCT 36.0 % MCV 84.2 fl MCH 28.5 pg MCHC 33.9 g/dL RDW 17.7 % Platelet Count 361 10^9/L MPV 6.7 fL Neutrophils (Gran) 4.8 10^9/L Lymphocytes 1.3 10^9/L Monocytes 0.6 10^9/L Manual Lymphocytes 19.5 % Manual Monocytes 9.3 % Test performed on Nov 18, 2019 08:00 CEA 2.4 ng/mL Impression: Sigmoid colon adenocarcinoma per colonoscopy done on November 10, 2019, Status post laparoscopic sigmoid colon resection and liver biopsy done on December 07 2019 final pathology report showed moderately differentiated adenocarcinoma involving sigmoid colon invading into but confined to muscularis propria, with clear surgical margins no lymphovascular/perineural involvement pT2 0 out of 21 lymph nodes showed metastatic disease pN0 Liver biopsy shows no evidence of metastatic disease rather multiple intrinsic liver abnormalities, favor multiple bile duct adenomas Stage I CT scan of abdomen pelvis done on November 15, 2019 shows diffuse heterogeneous liver enhancement, nonspecific but metastatic disease cannot be excluded. CT PET scan done on December 04, 2019 showed hypermetabolic primary sigmoid adenocarcinoma. Adjacent mesenteric nodes are too small to characterize. A normal pattern of activity in the liver, hepatic metastatic disease is less likely but not excluded Iron deficiency anemia on oral iron Plan: Discussed with patient regarding his labs white blood count 6.8 hemoglobin 12.2 hematocrit 36 platelets 361,000 iron saturation 9.2% ferritin 30, iron 30, TIBC 326 Clinically, patient is doing well, with no signs symptom suggestive of recurrence of disease. His iron deficiency anemia also improving with oral iron supplements, will continue with same and then he will return to clinic in 3 months with CBC and iron studies. Signed By: Mckinley Winkler M.D. <<Signature on File>>
== END 2020-01-20 09:48 | disposition home or self-care (01) ==
LOC: ONCMED 09:50
PROVIDERS: PCP Nurse Practitioner Family; Visit Provider Internal Medicine Hematology & Oncology
DX: Z08 Encounter for follow-up examination after completed treatment for malignant neoplasm (principal); Z85.038 Personal history of other malignant neoplasm of large intestine; D50.9 Iron deficiency anemia, unspecified; Z90.49 Acquired absence of other specified parts of digestive tract
CPT/HCPCS: G0463

== ENCOUNTER → 2020-04-26 10:45 | Outpatient (BNVA) | payer MEDICARE, OTHER, SELFPAY | PROVIDERS: PCP Nurse Practitioner Family; Visit Provider Internal Medicine Hematology & Oncology | DX: D64.9 Anemia, unspecified (principal); I10 Essential (primary) hypertension; R53.83 Other fatigue | CPT/HCPCS: 80053; 80061; 82306; 82607; 82728; 83550; 85025 ==

== ENCOUNTER → 2020-10-17 16:22 | Outpatient (BNVA) | payer MEDICARE, OTHER, SELFPAY | PROVIDERS: PCP Nurse Practitioner Family; Visit Provider Family Medicine | DX: M79.671 Pain in right foot (principal) | CPT/HCPCS: 73630 ==

== ENCOUNTER → 2020-12-12 10:08 | Outpatient (BNVA) | payer MEDICARE, OTHER, SELFPAY | PROVIDERS: PCP Nurse Practitioner Family; Visit Provider Nurse Practitioner Family | DX: E55.9 Vitamin D deficiency, unspecified (principal); I10 Essential (primary) hypertension; Z12.5 Encounter for screening for malignant neoplasm of prostate; E78.5 Hyperlipidemia, unspecified; L03.311 Cellulitis of abdominal wall; K63.89 Other specified diseases of intestine; D64.9 Anemia, unspecified | CPT/HCPCS: 80053; 80061; 82306; 84443; 85025; G0103 ==

== ENCOUNTER → 2021-07-16 12:18 | Outpatient (BNVA) | payer MEDICARE, OTHER, SELFPAY | PROVIDERS: PCP Nurse Practitioner Family; Visit Provider Nurse Practitioner Family | DX: I10 Essential (primary) hypertension (principal); E55.9 Vitamin D deficiency, unspecified; E78.5 Hyperlipidemia, unspecified; K63.89 Other specified diseases of intestine | CPT/HCPCS: 80053; 80061; 82306; 82607; 84443; 85025 ==

== ENCOUNTER → 2022-01-30 12:01 | Outpatient (BNVA) | payer MEDICARE, OTHER, SELFPAY | PROVIDERS: PCP Nurse Practitioner Family; Visit Provider Nurse Practitioner Family | DX: I10 Essential (primary) hypertension (principal); Z12.5 Encounter for screening for malignant neoplasm of prostate; E55.9 Vitamin D deficiency, unspecified; Z00.00 Encounter for general adult medical examination without abnormal findings; K63.89 Other specified diseases of intestine; E78.5 Hyperlipidemia, unspecified | CPT/HCPCS: 80053; 80061; 82306; 82607; 83735; 84443; 85025; G0103 ==

== ENCOUNTER → 2022-02-08 08:26 | Outpatient (BNVA) | payer MEDICARE, OTHER, SELFPAY | PROVIDERS: PCP Nurse Practitioner Family; Visit Provider Nurse Practitioner Family | DX: E87.1 Hypo-osmolality and hyponatremia (principal) | CPT/HCPCS: 80048 ==

== ENCOUNTER → 2022-02-22 11:05 | Outpatient (BNVA) | payer MEDICARE, OTHER, SELFPAY | PROVIDERS: PCP Nurse Practitioner Family; Visit Provider Nurse Practitioner Family | DX: E87.1 Hypo-osmolality and hyponatremia (principal) | CPT/HCPCS: 80048 ==

== ENCOUNTER → 2022-08-02 09:17 | Outpatient (BNVA) | payer MEDICARE, OTHER, SELFPAY | PROVIDERS: PCP Nurse Practitioner Family; Visit Provider Nurse Practitioner Family | DX: E78.5 Hyperlipidemia, unspecified (principal); I10 Essential (primary) hypertension | CPT/HCPCS: 80053; 80061; 84443; 85025 ==

== ENCOUNTER → 2023-02-05 10:25 | Outpatient (BNVA) | payer MEDICARE, OTHER, SELFPAY | PROVIDERS: PCP Nurse Practitioner Family; Visit Provider Nurse Practitioner Family | DX: I10 Essential (primary) hypertension (principal); Z12.5 Encounter for screening for malignant neoplasm of prostate | CPT/HCPCS: 80053; 80061; 83735; 84443; 85025; G0103 ==

== ENCOUNTER → 2023-02-10 08:15 | Outpatient (BNVA) | payer MEDICARE, OTHER, SELFPAY | PROVIDERS: PCP Nurse Practitioner Family; Referring Provider Nurse Practitioner Family; Visit Provider Surgery | DX: K63.89 Other specified diseases of intestine (principal) | CPT/HCPCS: 99204; 99214 ==

== ENCOUNTER 2023-03-28 06:32 | Day surgery (SDC) | payer MEDICARE, OTHER, SELFPAY ==
--- NOTE | 2023-03-28 06:33 | W.PM.OPSFHP ---
Same Day Surgery H&P Indication for Procedure/HPI DATE OF PROCEDURE: March 28, 2023 CHIEF COMPLAINT/INDICATIONFOR SURGICAL PROCEDURE: history of colon cancer PREOP DIAGNOSIS: history of sigmoid colon cancer PLANNED PROCEDURE: Operation Date: 03/28/23 07:40 Proposed Procedures p Colonoscopy 85301,k63.89(Not Applicable) - Mohan Shipley MD Medications/Allergies* Home Medications Medication Instructions Recorded Confirmed Type aspirin 325 mg tablet 325 mg PO DAILY 10/13/19 03/26/23 History lisinopril 40 mg tablet 40 mg PO BID 03/26/23 03/26/23 History metoprolol tartrate 50 mg tablet 50 mg PO BID 03/26/23 03/26/23 History potassium chloride 10 mEq 10 meq PO DAILY 03/26/23 03/26/23 History tablet,extended release(part/cryst) Allergies/Adverse Reactions Allergy/AdvReac Type Severity Reaction Status Date / Time hydrochlorothiazide Allergy ADR-Muscle Verified 03/26/23 14:07 Pain Pertinent History/Comorbid Conditions* Medical History (Updated 01/15/23 @ 13:17 by Soledad Baker NP) Abnormal loss of weight Hyperlipidemia Hypertension Surgical History (Updated 12/24/19 @ 07:26 by Grayson Espinosa MD) [place] post laparoscopic-[place]moide[place] (~11/2019) [place] [facility] [place] History (Updated 10/13/19 @ 10:18 by Jaqui Segundo LPN, RT) Cancer Sister Hypertension Sister Social History Smoking and tobacco/nicotine status: former use of tobacco/nicotine Second hand smoke exposure: No Alcohol intake: current Alcohol intake frequency: 0-2 Drinks per Day Alcohol type: beer Substance/Drug Use: never Adopted: No Caregiver/support person: Yes Lives independently: Yes Current occupational status: employed Current occupation: [employer] Current gender identity: Male Special jian needs: No Pertinent Exam Findings alert, oriented x 3, clear to auscultation bilaterally and regular rate & rhythm Recommendations Surgery/Procedure today Coding Level of Care Code Acute Code for Chg Fwd Diagnoses
[2023-03-28 06:46] VITALS: BP 175/78; PULSE 89; RESP 17; TEMP 36.2; O2SAT 99; BMI 32.5
[2023-03-28] MEDS: sodium chloride 0.9% 1,000 ML 30 ML IV (06:50)
--- NOTE | 2023-03-28 06:59 | P.ANESASSM_ITS ---
Pre-Anesthetic Assessment Height/Weight: Height 1.91 m Weight 117.934 kg Temp Pulse Resp BP Pulse Ox O2 Del Method 97.2 F L 89 17 175/78 99 Room Air 03/28/23 06:46 03/28/23 06:46 03/28/23 06:46 03/28/23 06:46 03/28/23 06:46 03/28/23 06:46 Preop Diagnosis: history of sigmoid colon cancer Operation Date: 03/28/23 07:40 Proposed Procedures p Colonoscopy 75081,k63.89(Not Applicable) - Mohan Shipley MD Was Beta Nicolás taken within 24 hours: Yes Was Clonidine taken within 24 hours: N/A Last intake: Intake Last Liquid Date 03/27/23 Last Liquid Time 22:00 Last Solid Date 03/27/23 Last Solid Time 10:00 Social Alcohol (drinks daily- two beers) and No tobacco (quit 20 years ago) Exam alert and oriented x 3 Airway Submandibular: within normal limits Cervical ROM: within normal limits Mallampati: Class II Dentition: other (poor teeth; solid but not in good shape) History/ROS No significant history except as noted Pulmonary Chronic Obstructive Pulmonary Disease CV/HEM Arrythmia (had an episode 10 years - self corrected) and Hypertension Chronic Renal Insufficiency (monitoring) Hepatic None reported GI None reported Metabolic Hyperlipidemia [facility] [place] None reported Neuropsych Transient Ischemic Attack (had a mini stroke 15 years ago -symptoms resolved) Anesthetic Plan ASA status: 3 Anesthesia: MAC Medications/Allergies Home Medications Medication Instructions Recorded Confirmed Last Taken Type aspirin 325 mg tablet 325 mg PO DAILY 10/13/19 03/26/23 03/24/23 History amlodipine 10 mg tablet 10 mg PO DAILY #90 tabs 02/05/23 03/26/23 03/26/23 Rx lisinopril 40 mg tablet 40 mg PO BID 03/26/23 03/26/23 03/26/23 History metoprolol tartrate 50 mg tablet 50 mg PO BID 03/26/23 03/26/23 03/26/23 History potassium chloride 10 mEq 10 meq PO DAILY 03/26/23 03/26/23 03/26/23 History tablet,extended release(part/cryst) Allergies Allergy/AdvReac Type Severity Reaction Status Date / Time hydrochlorothiazide Allergy ADR-Muscle Verified 03/26/23 14:07 Pain Current Medications Generic Name Dose Route Start Last Admin Trade Name Ceci PRN Reason Stop Dose Admin Sodium Chloride 1,000 mls @ 30 mls/hr 03/28/23 06:45 03/28/23 06:50 Sodium Chloride 0.9% IV 30 mls/hr .Q24H EVETTE Administration PFSH Anesthesia Medical History Abnormal loss of weight Hyperlipidemia Hypertension Surgical History Status post laparoscopic-assisted sigmoidectomy (~11/2019) dr. espinosa. [facility] [place] Family History Sister Cancer Hypertension Social History Smoking and tobacco/nicotine status: former use of tobacco/nicotine Second hand smoke exposure: No Alcohol intake: current Alcohol intake frequency: 0-2 Drinks per Day Alcohol type: beer Substance/Drug Use: never Adopted: No Caregiver/support person: Yes Lives independently: Yes Current occupational status: employed Current occupation: [employer] Current gender identity: Male Special jian needs: No Data Anesthesia Cardiac Studies: No Data to Display
[2023-03-28 08:25] VITALS: BP 137/64; PULSE 60; RESP 14; TEMP 36.4; O2SAT 92
[2023-03-28 08:40] VITALS: BP 151/68; PULSE 61; RESP 16; O2SAT 95
--- NOTE | 2023-03-28 09:00 | ANE.PACU2 ---
Inpatient post-anesthesia follow up: Airway intact: Yes Vital signs: Temperature 97.6 F Pulse Rate 61 Respiratory Rate 16 Blood Pressure 151/68 Pulse Oximetry 95 Oxygen Delivery Me thod Room Air Oxygen Flow Rate Fraction of Inspir ed Oxygen Hydration adequate: Yes Nausea and vomiting: No Pain level: 1 Mental status: Baseline
== END 2023-03-28 08:57 | disposition home or self-care (01) ==
PROVIDERS: PCP Nurse Practitioner Family; Visit Provider Surgery
PROC: 0DJD8ZZ Inspection of Lower Intestinal Tract, Via Natural or Artificial Opening Endoscopic (ICD-10-PCS; CPT 45378; principal; 2023-03-28 07:40)
DX: K63.89 Other specified diseases of intestine (principal); K63.5 Polyp of colon; Z79.82 Long term (current) use of aspirin; E78.5 Hyperlipidemia, unspecified; I10 Essential (primary) hypertension; Z87.891 Personal history of nicotine dependence; Z85.038 Personal history of other malignant neoplasm of large intestine; J44.9 Chronic obstructive pulmonary disease, unspecified; Z86.73 Personal history of transient ischemic attack (TIA), and cerebral infarction without residual deficits
CPT/HCPCS: 45380; 88305; J2704; J7030

== ENCOUNTER → 2023-04-09 11:27 | Outpatient (BNVA) | payer MEDICARE, OTHER, SELFPAY | PROVIDERS: PCP Nurse Practitioner Family; Visit Provider Nurse Practitioner Family | DX: E55.9 Vitamin D deficiency, unspecified (principal); N18.32 Chronic kidney disease, stage 3b | CPT/HCPCS: 80069; 81003; 82043; 82306; 82310; 83970; 85025; 87077; 87086; 87184 ==

== ENCOUNTER → 2023-04-09 11:39 | Outpatient (BNVA) | payer MEDICARE, OTHER, SELFPAY | PROVIDERS: PCP Nurse Practitioner Family; Visit Provider Nurse Practitioner Family | DX: E55.9 Vitamin D deficiency, unspecified (principal); N18.32 Chronic kidney disease, stage 3b | CPT/HCPCS: 87077; 87086; 87184 ==

== ENCOUNTER → 2023-04-14 09:57 | Outpatient (BNVA) | payer MEDICARE, OTHER, SELFPAY | PROVIDERS: PCP Nurse Practitioner Family; Visit Provider Surgery | DX: Z09 Encounter for follow-up examination after completed treatment for conditions other than malignant neoplasm (principal) | CPT/HCPCS: 99213 ==

== ENCOUNTER 2023-04-21 13:31 | Outpatient (CLI) | payer MEDICARE, OTHER, SELFPAY ==
--- NOTE | 2023-04-21 13:36 | US_ITS ---
WS: [id number] RENAL ULTRASOUND HISTORY: STAGE 3B CHRONIC KIDNEY DZ COMPARISON: None available. TECHNIQUE: 2-D and color Doppler imaging of the kidney submitted. Right kidney: 10.0 cm x 4.2 cm x 4.6 cm. Cortex: 1.2 cm Normal echogenicity with no hydronephrosis or mass. Left kidney: 11.1 cm x 4.2 cm x 5.2 cm. Cortex: 1.5 cm Size kidney. No hydronephrosis. Cortical cyst lower pole measures 1.8 x 2.0 cm. No solid mass. Aorta: Poorly visualized. Urinary Bladder: Normal distention. IMPRESSION: 1. No renal atrophy or solid mass. 2. Cortical cyst lower pole LEFT kidney 1.8 x 2.0 cm.
== END 2023-04-21 13:32 | disposition home or self-care (01) ==
LOC: RAD 13:32
PROVIDERS: PCP Nurse Practitioner Family; Visit Provider Internal Medicine Nephrology
DX: N18.32 Chronic kidney disease, stage 3b (principal); N28.1 Cyst of kidney, acquired
CPT/HCPCS: 76770; 80069; 81003; 82043; 82306; 82310; 83970; 85025; 87086

== ENCOUNTER → 2023-08-04 10:00 | Outpatient (BNVA) | payer MEDICARE, OTHER, SELFPAY | PROVIDERS: PCP Nurse Practitioner Family; Visit Provider Nurse Practitioner Family | DX: I10 Essential (primary) hypertension (principal) | CPT/HCPCS: 80053; 80061; 85025 ==

== ENCOUNTER → 2024-01-01 12:09 | Outpatient (BNVA) | payer MEDICARE, OTHER, SELFPAY | PROVIDERS: PCP Nurse Practitioner Family; Visit Provider Nurse Practitioner Family | DX: E87.6 Hypokalemia (principal); K63.89 Other specified diseases of intestine; E55.9 Vitamin D deficiency, unspecified | CPT/HCPCS: 80069; 82306; 82310; 82570; 83970; 84156; 85025 ==

== ENCOUNTER → 2024-01-14 09:17 | Outpatient (BNVA) | payer MEDICARE, OTHER, SELFPAY | PROVIDERS: PCP Nurse Practitioner Family; Visit Provider Nurse Practitioner Family | DX: I10 Essential (primary) hypertension (principal) | CPT/HCPCS: 80053; 80061; 85025 ==

== ENCOUNTER → 2024-04-20 10:54 | Outpatient (BNVA) | payer MEDICARE, OTHER, SELFPAY | PROVIDERS: PCP Nurse Practitioner Family; Visit Provider Nurse Practitioner Family | DX: N18.9 Chronic kidney disease, unspecified (principal); E55.9 Vitamin D deficiency, unspecified | CPT/HCPCS: 80069; 82043; 82306; 82310; 83970; 85007; 85027 ==

== ENCOUNTER → 2024-07-20 10:49 | Outpatient (BNVA) | payer MEDICARE, OTHER, SELFPAY | PROVIDERS: Family Provider Nurse Practitioner Family; PCP Nurse Practitioner Family; Visit Provider Nurse Practitioner Family | DX: Z12.5 Encounter for screening for malignant neoplasm of prostate (principal); I10 Essential (primary) hypertension; E87.1 Hypo-osmolality and hyponatremia; N18.9 Chronic kidney disease, unspecified | CPT/HCPCS: 80053; 80061; 84443; 85025; G0103 ==

== ENCOUNTER → 2024-08-09 11:09 | Outpatient (BNVA) | payer MEDICARE, OTHER, SELFPAY | PROVIDERS: Family Provider Nurse Practitioner Family; PCP Nurse Practitioner Family; Visit Provider Nurse Practitioner Family | DX: N18.30 Chronic kidney disease, stage 3 unspecified (principal); E55.9 Vitamin D deficiency, unspecified | CPT/HCPCS: 80069; 82043; 82306; 82310; 83970; 85025 ==

== ENCOUNTER → 2024-12-27 08:37 | Outpatient (BNVA) | payer MEDICARE, OTHER, SELFPAY | PROVIDERS: Family Provider Nurse Practitioner Family; PCP Nurse Practitioner Family; Visit Provider Nurse Practitioner Family | DX: E55.9 Vitamin D deficiency, unspecified (principal); N18.9 Chronic kidney disease, unspecified | CPT/HCPCS: 80069; 82043; 82306; 85025 ==

== ENCOUNTER → 2025-01-04 10:01 | Outpatient (BNVA) | payer MEDICARE, OTHER, SELFPAY | PROVIDERS: Family Provider Nurse Practitioner Family; PCP Nurse Practitioner Family; Visit Provider Nurse Practitioner Family | DX: E87.6 Hypokalemia (principal); E87.1 Hypo-osmolality and hyponatremia | CPT/HCPCS: 80048 ==

== ENCOUNTER → 2025-02-03 11:28 | Outpatient (BNVA) | payer MEDICARE, OTHER, SELFPAY | PROVIDERS: Family Provider Nurse Practitioner Family; PCP Nurse Practitioner Family; Visit Provider Nurse Practitioner Family | DX: I10 Essential (primary) hypertension (principal); E87.1 Hypo-osmolality and hyponatremia; N18.9 Chronic kidney disease, unspecified | CPT/HCPCS: 80053; 80061; 84443; 84550; 85025; 85651; 86140 ==

== ENCOUNTER → 2025-02-07 13:56 | Outpatient (BNVA) | payer MEDICARE, OTHER, SELFPAY | PROVIDERS: Family Provider Nurse Practitioner Family; PCP Nurse Practitioner Family; Visit Provider Nurse Practitioner Family | DX: R70.0 Elevated erythrocyte sedimentation rate (principal) | CPT/HCPCS: 86160; 86162; 86200; 86235; 86255; 86376; 86431 ==

== ENCOUNTER → 2025-04-26 09:48 | Outpatient (BNVA) | payer MEDICARE, OTHER, SELFPAY | PROVIDERS: Family Provider Nurse Practitioner Family; PCP Nurse Practitioner Family; Visit Provider Nurse Practitioner Family | DX: N18.9 Chronic kidney disease, unspecified (principal) | CPT/HCPCS: 80069; 82570; 84156; 85025 ==